=== PATIENT | female | born 1950 | race Caucasian/White ===

== ENCOUNTER 2017-03-18 01:42 | Emergency (ER) | payer OTHER ==
[~2017-03-18 01:42] MED LIST: ACETAMINOPHEN PO; ALEVE; ANSAID100 MG PO; ANTIBIOTIC FOR UTI; ASPIRINEC PO; AVANDAMET PO; AVANDIA PO; CALCIUM 500 +1 EAC2; CIPRO PO; DIABETIC MEDICATION; FISH OIL 1,0001 EAC4; FLAGYL PO; FLAX SEED OIL1000 M1; GLUCOSAMINE CHON; GLUCOTROL PO; KEFLEX500 M1 PO; LEVAQUIN PO; LISINOPRIL PO; LORTAB 7.5-5001 TAB PO; MULTI-VITAMIN1 EAC1; PERCOCET PO; PHENERGAN PO; ZOCOR PO; ZOFRAN PO
== END 2017-03-18 02:12 | disposition home or self-care (01) ==
LOC: SED 01:42
DX: S20.461A Insect bite (nonvenomous) of right back wall of thorax, initial encounter (principal); E11.9 Type 2 diabetes mellitus without complications; I10 Essential (primary) hypertension; E78.5 Hyperlipidemia, unspecified; W57.XXXA Bitten or stung by nonvenomous insect and other nonvenomous arthropods, initial encounter
CPT/HCPCS: 99282